=== PATIENT | female | born 1975 | race Caucasian/White ===

== ENCOUNTER → 2017-03-16 | Outpatient (CLI) | payer BC, OTHER ==
[2017-03-16 12:43] LABS: BASOPHILS % (AUTO) 0.3 %; HGB - HEMOGLOBIN 13.1 g/dL (12.0-16.0); LYMPHOCYTES # (AUTO) 2.6 10^3/uL (1.5-3.5); LYMPHOCYTES % (AUTO) 29.9 %; MEAN CORPUSCULAR HEMOGLOBIN 29.4 pg (27.0-31.0); MEAN CORPUSCULAR HGB CONC 33.7 g/dL (32.0-36.0); MEAN CORPUSCULAR VOLUME 87.2 fL (81.0-99.0); MEAN PLATELET VOLUME 9.2 fL (7.9-10.8); MONOCYTES # (AUTO) 0.5 10^3/uL (0.0-1.0); MONOCYTES % (AUTO) 5.7 %; NEUTROPHILS # (AUTO) 5.5 10^3/uL (1.5-6.6); NEUTROPHILS % (AUTO) 64.1 %; PLT - PLATELET COUNT 381 10^3/uL (130-450); RED BLOOD COUNT 4.48 10^6/uL (4.20-5.40); RED CELL DISTRIBUTION WIDTH 12.9 % (12.0-15.0); WHITE BLOOD COUNT 8.6 x10^3/uL (4.8-10.8)
[2017-03-16 13:20] LABS: ALBUMIN 3.2 g/dL (3.2-5.5); ALBUMIN/GLOBULIN RATIO 0.8 (1.0-2.2); ALKALINE PHOSPHATASE 56 IU/L (42-121); ALT ALANINE AMINOTRANSFERASE 11 IU/L (10-60); AST ASPARTATE AMINOTRANSFERASE 15 IU/L (10-42); BILIRUBIN,TOTAL 0.5 mg/dL (0.2-1.0); BUN - BLOOD UREA NITROGEN 14 mg/dL (6-20); CALCIUM 8.5 mg/dL (8.5-10.3); CARBON DIOXIDE - CO2 25 mmol/L (21-32); CHLORIDE 103 mmol/L (101-111); CHOL/HDL RATIO 3.8 (<4.4); CHOLESTEROL 200 mg/dL; CREATININE 0.7 mg/dL (0.4-1.0); GFR - MDRD 93 (>89); GLUCOSE 102 mg/dL (70-100); HDL CHOLESTEROL 52 mg/dL; LDL CHOLESTEROL,CALCULATED 117 mg/dL; LDL/HDL RATIO 2.3 (<4.4); SODIUM 136 mmol/L (135-145); TOTAL PROTEIN 7.3 g/dL (6.7-8.2); VLDL CHOLESTEROL 31 mg/dL
== END ==
LOC: LAB.WCP 08:00
PROVIDERS: ATTEND Family Medicine
DX: E87.6 Hypokalemia (principal); I10 Essential (primary) hypertension; E03.9 Hypothyroidism, unspecified
CPT/HCPCS: 36415; 80053; 80061; 83721; 84443; 85025

== ENCOUNTER 2017-09-05 08:24 | Outpatient (CLI) | payer BC ==
[2017-09-05 09:53] LABS: ALBUMIN 3.9 g/dL (3.2-5.5); BILIRUBIN,TOTAL 0.5 mg/dL (0.2-1.0); CALCIUM 9.2 mg/dL (8.5-10.3); CREATININE 0.8 mg/dL (0.4-1.0); TOTAL PROTEIN 7.7 g/dL (6.7-8.2)
--- NOTE | 2017-09-05 13:26 | XRAY Report ---
Procedure Date: 09/05/2017 Accession Number: [id number] / [id number] Procedure: XR - Chest 2 View X-Ray CPT Code: 78653 FULL RESULT: EXAM: Chest 2 View X-Ray DATE: 09/05/2017 10:08 AM CLINICAL HISTORY: POSITIVE PPD COMPARISON: None. TECHNIQUE: 2 views. FINDINGS: Lungs/Pleura: No focal opacities evident. No pneumothorax or pleural effusion. Normal volumes. Mediastinum: Heart and mediastinal contours are unremarkable. Other: None. IMPRESSION: Normal 2-view chest radiography. RADIA
== END 2017-09-05 08:25 | disposition home or self-care (01) ==
LOC: LAB 08:24 → DI 08:25
PROVIDERS: ATTEND Family Medicine
DX: R76.11 Nonspecific reaction to tuberculin skin test without active tuberculosis (principal)
CPT/HCPCS: 36415; 71046; 80053; 81599; 86735; 86762; 86765; 86787

== ENCOUNTER 2018-05-22 09:06 | Emergency (ER) | payer BC ==
--- NOTE | 2018-05-22 09:34 | ED Physician Documentation ---
PD HPI FEMALE - Stated complaint Stated Complaint: vaginal bleed - Chief complaint Chief Complaint: General - History obtained from History obtained from: Patient - History of Present Illness Timing - onset: Today Timing - duration: Hours (6) Timing - details: Abrupt onset Pain level max: 0 Pain level max: 0 Associated symptoms: Vaginal bleeding (states heavy vaginal bleeding today) Contributing factors: control (OCP) Similar symptoms before: Has not had sx before Recently seen: Not recently seen Review of Systems Ten Systems: 10 systems reviewed and negative Constitutional: denies: Fever, Chills Respiratory: denies: Cough GI: denies: Vomiting, Diarrhea Skin: denies: Rash Musculoskeletal: denies: Neck pain, Back pain Neurologic: denies: Headache PD PAST MEDICAL HISTORY - Past Medical History Past Medical History: Yes Cardiovascular: Hypertension Endocrine/Autoimmune: HyPOthyroidism - Past Surgical History Past Surgical History: Yes - Present Medications Home Medications: Ambulatory Orders Medication Instructions Recorded Confirmed Tranexamic Acid 1,300 mg PO TID #30 tablet 05/22/18 - Allergies Allergies/Adverse Reactions: Allergies Allergy/AdvReac Type Severity Reaction Status Date / Time No Known Drug Allergies Allergy Verified 05/22/18 11:38 - Social History Does the pt smoke?: No Smoking Status: Never smoker Does the pt drink ETOH?: No Does the pt have substance abuse?: No PD ED PE NORMAL - Vitals Vital signs reviewed: Yes - General General: Alert and oriented X 3, No acute distress - HEENT HEENT: Moist mucous membranes - Neck Neck: Supple, no meningeal sign - Cardiac Cardiac: RRR - Respiratory Respiratory: No respiratory distress, Clear bilaterally - Abdomen Abdomen: Soft, Non tender, Non distended - Female Female : Rn Ambulatory present, Other (Small amount of bleeding from the cervical os. Clots were removed. No lacerations. No visible polyp. Normal bimanual exam) - Derm Derm: Warm and dry - Extremities Extremities: No edema - Neuro Neuro: Alert and oriented X 3 - Psych Psych: Normal mood, Normal affect Results - Vitals Vitals: Vital Signs - 24 hr 05/22/18 05/22/18 05/22/18 09:17 09:19 11:20 Temperature 37.1 C 37.1 C Heart Rate 95 95 88 Respiratory 14 14 16 Rate Blood Pressure 169/99 H 169/99 H 167/101 H O2 Saturation 96 96 05/22/18 12:07 Temperature Heart Rate 90 Respiratory 14 Rate Blood Pressure 148/100 H O2 Saturation 98 Oxygen O2 Source Room air - Labs Labs: Laboratory Tests 05/22/18 05/22/18 05/22/18 09:30 09:30 09:30 WBC 8.3 RBC 4.52 Hgb 13.4 Hct 40.2 MCV 88.9 MCH 29.7 MCHC 33.4 RDW 12.8 Plt Count 407 MPV 8.1 Neut # (Auto) 5.3 Lymph # (Auto) 2.6 [facility] # (Auto) 0.5 Eos # (Auto) 0.0 Baso # (Auto) 0.0 Absolute Nucleated RBC 0.01 Nucleated RBC % 0.1 PT 11.2 INR 1.0 APTT 29.4 Sodium 137 Potassium 3.5 Chloride 102 Carbon Dioxide 25 Anion Gap 10.0 BUN 14 Creatinine 0.8 Estimated GFR (MDRD) 79 L Glucose 135 H Calcium 8.5 Total Bilirubin 0.8 AST 24 ALT < 10 L Alkaline Phosphatase 52 Total Protein 7.3 Albumin 3.4 Globulin 3.9 Albumin/Globulin Ratio 0.9 L Lipase 27 Urine Color Urine Clarity Urine pH Ur Specific [place] Urine Protein Urine Glucose (UA) Urine Ketones Urine Occult Blood Urine Nitrite Urine Bilirubin Urine Urobilinogen Ur Leukocyte Esterase Urine RBC Urine WBC Ur Squamous Epith Cells Urine Bacteria Ur Microscopic Review Urine Culture Comments Urine HCG, Qual 05/22/18 09:46 WBC RBC Hgb Hct MCV MCH MCHC RDW Plt Count MPV Neut # (Auto) Lymph # (Auto) [facility] # (Auto) Eos # (Auto) Baso # (Auto) Absolute Nucleated RBC Nucleated RBC % PT INR APTT Sodium Potassium Chloride Carbon Dioxide Anion Gap BUN Creatinine Estimated GFR (MDRD) Glucose Calcium Total Bilirubin AST ALT Alkaline Phosphatase Total Protein Albumin Globulin Albumin/Globulin Ratio Lipase Urine Color RED/BLOODY Urine Clarity BLOODY Urine pH 6.0 Ur Specific [place] Urine Protein Urine Glucose (UA) NEGATIVE Urine Ketones Urine Occult Blood LARGE H Urine Nitrite Urine Bilirubin COLOR INTERFERENCE Urine Urobilinogen Ur Leukocyte Esterase NEGATIVE Urine RBC TNTC H Urine WBC 6-10 H Ur Squamous Epith Cells FEW Squamous Urine Bacteria Few Ur Microscopic Review INDICATED Urine Culture Comments INDICATED Urine HCG, Qual NEGATIVE PD MEDICAL DECISION MAKING - ED course Complexity details: reviewed results, re-evaluated patient, considered differential, d/w patient, d/w bank consultant ED course: 43-year-old female with dysfunctional uterine bleeding. Discussed the case with gynecology on-call Dr. Mcclure who recommends follow-up as an outpatient. Patient is concerned about the amount of bleeding she is having and therefore will trial her on TXA. Given a gram IV here and will place on 1300 mg 3 times a day at home for 5 days. Patient counseled regarding risk of DVT and clotting. Has no history of blood clots. Patient counseled regarding signs and symptoms for which I believe and urgent re-evaluation would be necessary. Patient with good understanding of and agreement to plan and is comfortable going home at this time This document was made in part using voice recognition software. While efforts are made to proofread this document, sound alike and grammatical errors may occur. Departure - Departure Disposition: 01 Home, Self Care Clinical Impression: Dysfunctional uterine bleeding Condition: Good Instructions: ED Bleed Irregular Vaginal Follow-Up: Lindsey Hines DO [Primary Care Provider] - Within 1 week Jorge Mcclure MD [Provider Admit Priv/Credential] - Prescriptions: Tranexamic Acid 1,300 mg PO TID #30 tablet Comments: Return if you worsen. Follow-up with your doctor for further care. This should improve over the next day or so. Your laboratory testing is normal today. Discharge Date/Time: 05/22/18 12:08
[2018-05-22 09:41] LABS: BASOPHILS % (AUTO) 0.2 %; HGB - HEMOGLOBIN 13.4 g/dL (12.0-16.0); LYMPHOCYTES # (AUTO) 2.6 10^3/uL (1.5-3.5); LYMPHOCYTES % (AUTO) 30.9 %; MEAN CORPUSCULAR HEMOGLOBIN 29.7 pg (27.0-31.0); MEAN CORPUSCULAR HGB CONC 33.4 g/dL (32.0-36.0); MEAN CORPUSCULAR VOLUME 88.9 fL (81.0-99.0); MEAN PLATELET VOLUME 8.1 fL (7.9-10.8); MONOCYTES # (AUTO) 0.5 10^3/uL (0.0-1.0); MONOCYTES % (AUTO) 5.7 %; NEUTROPHILS # (AUTO) 5.3 10^3/uL (1.5-6.6); NEUTROPHILS % (AUTO) 63.2 %; PLT - PLATELET COUNT 407 10^3/uL (130-450); RED BLOOD COUNT 4.52 10^6/uL (4.20-5.40); RED CELL DISTRIBUTION WIDTH 12.8 % (12.0-15.0); WHITE BLOOD COUNT 8.3 x10^3/uL (4.8-10.8)
[2018-05-22 09:46] LABS: PT - PROTHROMBIN TIME 11.2 secs (9.9-12.6)
[2018-05-22 09:53] LABS: PARTIAL THROMBOPLASTIN TIME 29.4 secs (24.9-33.3)
[2018-05-22 09:56] LABS: ALBUMIN 3.4 g/dL (3.2-5.5); ALBUMIN/GLOBULIN RATIO 0.9 (1.0-2.2); ALKALINE PHOSPHATASE 52 IU/L (42-121); ALT ALANINE AMINOTRANSFERASE < 10 IU/L (10-60); AST ASPARTATE AMINOTRANSFERASE 24 IU/L (10-42); BILIRUBIN,TOTAL 0.8 mg/dL (0.2-1.0); BUN - BLOOD UREA NITROGEN 14 mg/dL (6-20); CALCIUM 8.5 mg/dL (8.5-10.3); CARBON DIOXIDE - CO2 25 mmol/L (21-32); CHLORIDE 102 mmol/L (101-111); CREATININE 0.8 mg/dL (0.4-1.0); GFR - MDRD 79 (>89); GLUCOSE 135 mg/dL (70-100); LIPASE 27 U/L (22-51); SODIUM 137 mmol/L (135-145); TOTAL PROTEIN 7.3 g/dL (6.7-8.2)
[2018-05-22 09:58] LABS: GLUCOSE, URINE (UA) NEGATIVE (NEGATIVE); LEUKOCYTE ESTERASE, URINE NEGATIVE (NEGATIVE); OCCULT BLOOD,URINE LARGE (NEGATIVE)
[2018-05-22 10:01] LABS: BILIRUBIN,URINE COLOR INTERFERENCE (NEGATIVE); CLARITY,URINE BLOODY (CLEAR); HCG UR QUAL NEGATIVE
[2018-05-22 10:03] LABS: BACTERIA,URINE Few /HPF (None Seen); RBC,URINE TNTC /HPF (0-5); SQUAMOUS EPITHELIAL CELL,UR FEW Squamous (<= Few)
[2018-05-22] MEDS ORDERED: TRANEXAMIC ACID 1,000 MG in SODIUM CHLORIDE 0.9% 100ML 100 ML IV STA (11:22)
[2018-05-22 12:08] VITALS: BP 148/100
== END 2018-05-22 12:08 | disposition home or self-care (01) ==
LOC: ED 09:06
DX: N93.8 Other specified abnormal uterine and vaginal bleeding (principal); I10 Essential (primary) hypertension; E03.9 Hypothyroidism, unspecified
CPT/HCPCS: 36415; 80053; 81001; 81003; 81025; 83690; 85025; 85610; 85730; 86850; 86870; 86900; 86901; 86920; 86922; 87086; 96365; 99283

== ENCOUNTER 2018-09-24 15:49 | Outpatient (CLI) | payer BC ==
--- NOTE | 2018-09-24 16:23 | Mammography Report ---
Reason: SCREENING MAMMO Procedure Date: 09/24/2018 Accession Number: [id number] / [id number] Procedure: MGN - Screening Mammo Dig Bilat CPT Code: FULL RESULT: EXAM: Screening Mammo Dig Bilat DATE: 09/24/2018 4:08 PM CLINICAL HISTORY: Screening encounter. Baseline exam. TECHNIQUE: (B) - Bilateral CC, laterally exaggerated CC, MLO views were obtained. COMPARISON: None PARENCHYMAL PATTERN: (D) - The breast(s) demonstrate(s) heterogeneously dense fibroglandular parenchyma. FINDINGS: There are no suspicious masses, calcifications, or areas of distortion. IMPRESSION: Negative examination. BI-RADS category 1. RECOMMENDATION: (ANNUAL) - Recommend routine annual screening mammography. BI-RADS CATEGORY: (1) - Negative. STANDARD QUALIFYING STATEMENTS: 1. This examination was not reviewed with the aid of Computer-Aided Detection (CAD). 2. A negative or benign imaging report should not preclude biopsy if clinically suspicious findings are present. 3. Dense breasts may obscure an underlying neoplasm. 4. This examination was reviewed without the aid of 3D breast imaging (tomosynthesis).
== END 2018-09-24 15:50 | disposition home or self-care (01) ==
LOC: DI.N 15:49
DX: Z12.31 Encounter for screening mammogram for malignant neoplasm of breast (principal)
CPT/HCPCS: 77067

== ENCOUNTER 2018-10-24 14:47 | Outpatient (CLI) | payer BC | END 2018-10-24 23:59 | disposition home or self-care (01) | LOC: LAB.WCP 14:47 | PROVIDERS: ATTEND Family Medicine | DX: E03.9 Hypothyroidism, unspecified (principal) | CPT/HCPCS: 36415; 84443 ==

== ENCOUNTER 2019-01-21 07:10 | Outpatient (CLI) | payer BC ==
[2019-01-21 13:52] LABS: BASOPHILS % (AUTO) 0.2 %; HGB - HEMOGLOBIN 13.2 g/dL (12.0-16.0); LYMPHOCYTES # (AUTO) 2.3 10^3/uL (1.5-3.5); LYMPHOCYTES % (AUTO) 37.9 %; MEAN CORPUSCULAR HGB CONC 30.6 g/dL (32.0-36.0); MEAN CORPUSCULAR VOLUME 88.1 fL (81.0-99.0); MEAN PLATELET VOLUME 10.6 fL (7.9-10.8); MONOCYTES # (AUTO) 0.5 10^3/uL (0.0-1.0); MONOCYTES % (AUTO) 7.9 %; NEUTROPHILS # (AUTO) 3.3 10^3/uL (1.5-6.6); NEUTROPHILS % (AUTO) 53.7 %; PLT - PLATELET COUNT 402 10^3/uL (130-450); RED BLOOD COUNT 4.89 10^6/uL (4.20-5.40); RED CELL DISTRIBUTION WIDTH 13.6 % (12.0-15.0); WHITE BLOOD COUNT 6.2 x10^3/uL (4.8-10.8)
[2019-01-21 13:59] LABS: ALBUMIN 3.6 g/dL (3.2-5.5); ALBUMIN/GLOBULIN RATIO 1.1 (1.0-2.2); ALKALINE PHOSPHATASE 75 IU/L (42-121); ALT ALANINE AMINOTRANSFERASE 12 IU/L (10-60); AST ASPARTATE AMINOTRANSFERASE 19 IU/L (10-42); BILIRUBIN,TOTAL 0.6 mg/dL (0.2-1.0); BUN - BLOOD UREA NITROGEN 16 mg/dL (6-20); CALCIUM 8.7 mg/dL (8.5-10.3); CARBON DIOXIDE - CO2 31 mmol/L (21-32); CHLORIDE 101 mmol/L (101-111); CHOL/HDL RATIO 3.7 (<4.4); CHOLESTEROL 190 mg/dL; CREATININE 0.9 mg/dL (0.4-1.0); GFR - MDRD 69 (>89); GLUCOSE 82 mg/dL (70-100); HDL CHOLESTEROL 51 mg/dL; LDL CHOLESTEROL,CALCULATED 120 mg/dL; LDL/HDL RATIO 2.4 (<4.4); SODIUM 140 mmol/L (135-145); VLDL CHOLESTEROL 19 mg/dL
[2019-01-21 14:35] LABS: HEMOGLOBIN A1C 0.53 g/dL; HEMOGLOBIN A1C % 5.6 % (4.6-6.2)
[2019-01-21 19:49] LABS: FREE T4 (FREE THYROXINE) 1.02 ng/dL (0.58-1.64)
== END 2019-01-21 23:59 | disposition home or self-care (01) ==
LOC: LAB.WCP 07:10
PROVIDERS: ATTEND Family Medicine
DX: Z00.00 Encounter for general adult medical examination without abnormal findings (principal); I10 Essential (primary) hypertension; E66.9 Obesity, unspecified; E03.9 Hypothyroidism, unspecified
CPT/HCPCS: 36415; 80053; 80061; 83036; 83721; 84439; 84443; 85025

== ENCOUNTER 2020-02-19 08:18 | Outpatient (CLI) | payer BC ==
--- OUTSIDE RECORDS SUMMARY | 2020-02-25 01:48 | EXTERNAL MEDICAL SUMMARY RPT | Continuity of Care Document ---
:1975 Demographics Phone Unavailable Preferred Language Belarusian Marital Status Unknown Mandaen Affiliation Unknown Race Unknown Ethnic Group Unknown Author Organization [place] Address [address] [place] [address] Phone Care Team Providers Name Role Phone Scheidt Unavailable Unavailable DO Unavailable Unavailable Problems date description facility 2020-02-19 00:00 PAIN IN LEFT LOWER LEG [facility] 2020-02-19 00:00:00 [facility] 2020-02-19 00:00:00 [facility] 2020-02-19 00:00:00 [facility] 2020-02-19 00:00:00 Health-related behavior [facility] 2020-02-19 00:00:00 Tobacco use and exposure [facility] h Primary Care [facility] 2020-02-19 00:00:00 [facility] 2020-02-19 00:00:00 [facility] 2020-02-19 00:00:00 Details of drug misuse [facility] Primary Care behavior [facility] 2020-02-19 00:00:00 [facility] 2020-02-19 00:00:00 Tobacco smoking status NHIS [facility] 2020-02-19 00:00:00 Total score? [facility] 2020-02-19 00:00:00 [facility] 2020-02-19 08:18 PAIN IN LEFT LOWER LEG [facility] edical [place] Allergies date description facility [facility]RAM[facility] No Known Drug Allergies [facility] NO KNOWN ENVIRONMENTAL ALLERGIES [facility] SULFA ANTIBIOTICS [facility] LATEX [facility] Medications date description facility null [facility] [place] [facility] null [facility] [facility] LORAZEPAM [facility] LORAZEPAM [facility] 2020-01-19 00:00:00 null [facility] 2020-01-19 00:00:00 null [facility] 2020-01-19 00:00:00 LEVOTHYROXINE SODIUM [facility] 2020-01-19 00:00:00 LEVOTHYROXINE SODIUM [facility] Procedures date description facility 2020-02-19 00:00:00 D-DIMER [facility] date description facility 2020-02-19 00:00:00 [facility] Results Social History date description facility 2020-02-19 00:00:00 Former smoker [facility] Social History date description facility 2020-02-19 00:00:00 Former smoker [facility] date description facility [id number]
== END 2020-02-19 23:59 | disposition home or self-care (01) ==
LOC: LAB.N 08:18
PROVIDERS: ATTEND Family Medicine
DX: M79.662 Pain in left lower leg (principal)
CPT/HCPCS: 36415; 85379

== ENCOUNTER 2020-02-19 13:47 | Emergency (ER) | payer BC ==
--- NOTE | 2020-02-19 14:43 | ED Physician Documentation ---
History of Present Illness - Stated complaint Stated Complaint: BLOOD CLOT LT LEG - Chief complaint Chief Complaint: Ext Problem - History obtained from History obtained from: Patient - Additonal information Additional information: 44-year-old female is referred to the emergency department from a local walk-in clinic for concern of possible deep vein thrombosis. She reports that for 4 days she has had pain in her left posterior calf mostly when walking. She reports that it feels like she may have had cramps in the leg overnight. She has no recent surgeries, immobilizations. No previous history of blood clots or cancer. She does not take oral contraceptive pills. At the local walk-in clinic she had a D-dimer completed and it was mildly elevated at 273. Therefore she was referred to the ER for an ultrasound. Patient denies any chest pain fevers or shortness of breath. PMH: Hypertension, asthma, hypothyroid Social no tobacco Meds hydrochlorothiazide, albuterol, levothyroxine, telmisartan Review of Systems Constitutional: reports: Reviewed and negative Eyes: reports: Reviewed and negative Ears: reports: Reviewed and negative Nose: reports: Reviewed and negative Cardiac: reports: Calf pain, Reviewed and negative. denies: Pedal edema Respiratory: reports: Reviewed and negative GI: reports: Reviewed and negative : reports: Reviewed and negative Skin: reports: Reviewed and negative Musculoskeletal: reports: Extremity pain (left posterior calf). denies: Joint swelling Neurologic: reports: Reviewed and negative Psychiatric: reports: Reviewed and negative PD PAST MEDICAL HISTORY - Past Medical History Past Medical History: Yes Cardiovascular: Hypertension Endocrine/Autoimmune: HyPOthyroidism - Past Surgical History Past Surgical History: Yes - Present Medications Home Medications: Ambulatory Orders Medication Instructions Recorded Confirmed Tranexamic Acid 1,300 mg PO TID #30 tablet 05/22/18 - Allergies Allergies/Adverse Reactions: Allergies Allergy/AdvReac Type Severity Reaction Status Date / Time No Known Drug Allergies Allergy Verified 02/19/20 13:50 - Social History Does the pt smoke?: No Smoking Status: Never smoker Does the pt drink ETOH?: No Does the pt have substance abuse?: No - Immunizations Immunizations are current?: No - POLST Patient has POLST: No PD ED PE EXPANDED - General General: Alert, No acute distress, Well developed/nourished - Cardiac Cardiac: Regular Rate, Regular Rhythm, Radial strong equal, Pedal strong equal, Cap refill < 2 sec. No: Murmur Present - Respiratory Respiratory: Clear to ausultation paulo. No: Distress, Labored - Abdomen Abdomen: Normal Bowel sounds. No: Tender to palpation - Extremities Extremities: Left leg (No unilateral leg swelling or erythema. Negative Homans bilaterally. Mild tenderness elicited in the deep posterior calf with palpation only.), Pedal Pulses Present. No: Pedal edema bilateral, Right calf TTP/cord, Left calf TTP/cord Results - Vitals Vitals: Vital Signs - 24 hr 02/19/20 02/19/20 13:51 15:50 Temperature 36.5 C 36.7 C Heart Rate 109 H 93 Respiratory 16 14 Rate Blood Pressure 152/90 H 138/84 H O2 Saturation 100 98 Oxygen O2 Source Room air - Labs Labs: Laboratory Tests 02/19/20 02/19/20 15:42 15:46 WBC 8.1 RBC 5.02 Hgb 14.6 Hct 44.4 MCV 88.4 MCH 29.1 MCHC 32.9 RDW 13.2 Plt Count 378 MPV 9.8 Neut # (Auto) 4.5 Lymph # (Auto) 2.8 [facility] # (Auto) 0.7 Eos # (Auto) 0.0 Baso # (Auto) 0.0 Absolute Nucleated RBC 0.00 Nucleated RBC % 0.0 Whole Blood INR 1.0 - Rads (name of study) US DVT Radiology: See rad report, Other (Per driver service technician no DVT) PD MEDICAL DECISION MAKING - ED course Complexity details: reviewed results, re-evaluated patient, considered differential, d/w patient ED course: 44-year-old female was referred to the emergency department for DVT rule out as she had a mildly elevated D-dimer at a local walk-in clinic. On exam she has very mild tenderness with deep palpation of the left posterior calf only. There is no swelling or erythema. However we will proceed with an ultrasound DVT. Her pretest porbability is low via wells criteria. 1600: Ultrasound does not show any acute deep vein thrombosis. Patient will be discharged home. Continue follow-up with primary care provider Departure - Departure Disposition: Home, Self Care Clinical Impression: Pain of left calf Condition: Stable Record reviewed to determine appropriate education?: Yes Comments: Ashlee deng are seen in the emergency department today for evaluation of left calf pain. You did have a lab called a D-dimer completed as an outpatient which was just mildly elevated therefore you referred to the emergency department to have an ultrasound completed to rule out a clot. The ultrasound today does not show any blood clots. I do recommend that you take [id number] ibuprofen or Tylenol for any discomfort. If at any point you develop leg swelling, have leg redness, chest pain or shortness of breath please return to the emergency department for reevaluation
[2020-02-19 15:51] VITALS: BP 138/84
--- NOTE | 2020-02-19 15:52 | Ultrasound Report ---
PROCEDURE: Duplex Ext Veins Left INDICATIONS: calf pain; elevated dimer TECHNIQUE: Real-time imaging, as well as color and pulse Doppler interrogation, were performed of the lower extr emity deep veins from the inguinal ligament to the popliteal fossa. COMPARISON: None. FINDINGS: The deep veins are normally compressible, and free of intraluminal thrombus. Color and pu lse Doppler demonstrate normal phasic intraluminal flow. There is normal augmentation response to di stal compression maneuver. IMPRESSION: No sonographic evidence of DVT. Reviewed by: Josse Granados MD on 02/19/2020 3:51 PM PST Approved by: Josse Granados MD on 02/19/2020 3:51 PM PST Station ID: [id number]
[2020-02-19 15:54] LABS: EOSINOPHILS % (AUTO) 0.1 %; HGB - HEMOGLOBIN 14.6 g/dL (12.0-16.0); LYMPHOCYTES # (AUTO) 2.8 10^3/uL (1.5-3.5); LYMPHOCYTES % (AUTO) 35.1 %; MEAN CORPUSCULAR HEMOGLOBIN 29.1 pg (27.0-31.0); MEAN CORPUSCULAR HGB CONC 32.9 g/dL (32.0-36.0); MEAN CORPUSCULAR VOLUME 88.4 fL (81.0-99.0); MEAN PLATELET VOLUME 9.8 fL (7.9-10.8); MONOCYTES # (AUTO) 0.7 10^3/uL (0.0-1.0); MONOCYTES % (AUTO) 9.2 %; NEUTROPHILS # (AUTO) 4.5 10^3/uL (1.5-6.6); NEUTROPHILS % (AUTO) 55.4 %; PLT - PLATELET COUNT 378 10^3/uL (130-450); RED BLOOD COUNT 5.02 10^6/uL (4.20-5.40); RED CELL DISTRIBUTION WIDTH 13.2 % (12.0-15.0); WHITE BLOOD COUNT 8.1 x10^3/uL (4.8-10.8)
[2020-02-19 16:09] LABS: ALBUMIN 4.1 g/dL (3.2-5.5); ALBUMIN/GLOBULIN RATIO 1.1 (1.0-2.2); BILIRUBIN,TOTAL 0.4 mg/dL (0.2-1.0); CREATININE 0.8 mg/dL (0.4-1.0); TOTAL PROTEIN 7.7 g/dL (6.7-8.2)
--- OUTSIDE RECORDS SUMMARY | 2020-02-25 01:15 | EXTERNAL MEDICAL SUMMARY RPT | Continuity of Care Document ---
:1975 Demographics Phone Unavailable Preferred Language Maltese Marital Status Unknown Scientology Affiliation Unknown Race Unknown Ethnic Group Unknown Author Organization [place] Address [address] [place] [address] Phone Care Team Providers Name Role Phone Scheidt Unavailable Unavailable DO Unavailable Unavailable Problems date description facility 2020-02-19 00:00 PAIN IN LEFT LOWER LEG [facility] 2020-02-19 00:00[facility] 2020-02-19 [facility]:00[facility] 2020-02-19 00:00:00 [facility] 2020-02-19 00:00:00 [facility] 2020-02-19 00:00:00 Tobacco use and exposure [facility] h Primary Care [facility] 2020-02-19 00:00:00 [facility] 2020-02-19 00:00:00 [facility] 2020-02-19 00:00:00 Details of drug misuse [facility] Primary Care behavior [facility] 2020-02-19 00:00:00 [facility] 2020-02-19 00:00:00 [facility] 2020-02-19 00:00:00 Total score? [facility] 2020-02-19 00:00:00 [facility] 2020-02-19 08:18 PAIN IN LEFT LOWER LEG [facility] edical [place] Allergies date description facility [facility] No Known Drug Allergies [facility] NO KNOWN ENVIRONMENTAL ALLERGIES [facility] SULFA ANTIBIOTICS [facility] LATEX [facility] Medications date description facility null [facility] null [facility] LORAZEPAM [facility] LORAZEPAM [facility] 2020-01-19 00:00:00 null [facility] 2020-01-19 00:00:00 null [facility] 2020-01-19 00:00:00 LEVOTHYROXINE SODIUM [facility] 2020-01-19 00:00:00 LEVOTHYROXINE SODIUM [facility] Procedures date description facility 2020-02-19 00:00:00 D-DIMER [facility] date description facility 2020-02-19 00:00:00 [facility] Results Social History date description facility 2020-02-19 00:00:00 Former smoker [facility] Social History date description facility 2020-02-19 00:00:00 Former smoker [facility] date description facility [id number]
== END 2020-02-19 16:06 | disposition home or self-care (01) ==
LOC: ED 13:47
DX: M79.662 Pain in left lower leg (principal); I10 Essential (primary) hypertension; E03.9 Hypothyroidism, unspecified
CPT/HCPCS: 36415; 80053; 83690; 85025; 85379; 85610; 99282; 99284

== ENCOUNTER 2020-08-28 07:32 | Observation (INO) | payer BC ==
[2020-08-28] MEDS ORDERED: IPRATROPIUM/ALBUTEROL 3 ML NEB INH STA (07:48)
[2020-08-28] MEDS ORDERED: ALBUTEROL NEB 2.5 MG/3 ML INH STA ×3 (08:15→10:21)
--- NOTE | 2020-08-28 08:18 | ED Physician Documentation ---
History of Present Illness - Stated complaint Stated Complaint: SOA - Chief complaint Chief Complaint: Resp - History obtained from History obtained from: Patient - Additonal information Additional information: 45-year-old woman with history of asthma, high blood pressure, hypothyroidism, presents with nonproductive cough and fever 100.3 over the past 2 days. She has a son with a cold. Patient used her albuterol inhaler this morning without relief and was experiencing shortness of breath so came to the emergency room. Denies chest pain, leg swelling, nausea, abdominal pain, back pain. Denies rash. +covid vaccine. Review of Systems Ten Systems: 10 systems reviewed and negative Constitutional: reports: Fever, Fatigue Respiratory: reports: Dyspnea, Cough PD PAST MEDICAL HISTORY - Past Medical History Past Medical History: Yes Cardiovascular: Hypertension Respiratory: Asthma Neuro: None Endocrine/Autoimmune: HyPOthyroidism GI: None SOLOIST DANCER: None : None HEENT: None Psych: Anxiety Musculoskeletal: None - Past Surgical History Past Surgical History: Yes /SOLOIST DANCER: section, Tubal ligation - Present Medications Home Medications: Ambulatory Orders Medication Instructions Recorded Confirmed Albuterol Sulf [Ventolin Hfa 1 - 2 puffs INH Q4HR PRN 08/28/20 08/28/20 Inhaler] Levothyroxine Sodium 200 mcg PO DAILY 08/28/20 08/28/20 [Levothyroxine] PARoxetine HCl [Paxil] 40 mg PO DAILY 08/28/20 08/28/20 Telmisartan/Hydrochlorothiazid 1 tab ORAL DAILY 08/28/20 08/28/20 [Telmisartan-Hctz 40-12.5 mg Tb] - Allergies Allergies/Adverse Reactions: Allergies Allergy/AdvReac Type Severity Reaction Status Date / Time No Known Drug Allergies Allergy Verified 08/28/20 07:37 - Social History Does the pt smoke?: No Smoking Status: Never smoker Does the pt drink ETOH?: No Does the pt have substance abuse?: No - Immunizations Immunizations are current?: Yes - POLST Patient has POLST: No PD ED PE NORMAL - Vitals Vital signs reviewed: Yes - General General: Alert and oriented X 3, No acute distress, Well developed/nourished - HEENT HEENT: Atraumatic, PERRL, EOMI - Neck Neck: Supple, no meningeal sign - Cardiac Cardiac: RRR - Respiratory Respiratory: No respiratory distress, Other (No increased work of breathing. Bilateral decreased airflow and expiratory wheezing) - Abdomen Abdomen: Non tender, Non distended - Derm Derm: Normal color - Extremities Extremities: No edema - Neuro Neuro: Alert and oriented X 3 - Psych Psych: Normal mood, Normal affect Results - Vitals Vitals: Vital Signs - 24 hr 08/28/20 08/28/20 08/28/20 07:37 08:09 08:31 Temperature 37.4 C Heart Rate 120 H 103 H 104 H Respiratory 20 22 18 Rate Blood Pressure 130/74 120/78 O2 Saturation 90 L 91 L 08/28/20 08/28/20 08/28/20 09:13 10:00 10:36 Temperature Heart Rate 106 H 111 H 109 H Respiratory 18 22 18 Rate Blood Pressure 121/77 O2 Saturation 93 Oxygen O2 Source Room air - Labs Labs: Laboratory Tests 08/28/20 08/28/20 08/28/20 11:15 11:31 11:31 WBC 10.9 H RBC 4.57 Hgb 13.7 Hct 40.8 MCV 89.3 MCH 30.0 MCHC 33.6 RDW 13.4 Plt Count 334 MPV 10.2 Neut # (Auto) 9.7 H Lymph # (Auto) 0.7 L [place] # (Auto) 0.4 Eos # (Auto) 0.0 Baso # (Auto) 0.0 Absolute Nucleated RBC 0.00 Nucleated RBC % 0.0 Sodium 135 Potassium 3.7 Chloride 98 L Carbon Dioxide 26 Anion Gap 11.0 BUN 12 Creatinine 0.8 Estimated GFR (MDRD) 78 L Glucose 140 H Calcium 8.9 Total Bilirubin 0.4 AST 19 ALT 17 Alkaline Phosphatase 93 Total Protein 7.7 Albumin 3.9 Globulin 3.8 Albumin/Globulin Ratio 1.0 Lipase 20 L Nasal Adenovirus (PCR) NOT DETECTED Nasal B. parapertussis DNA (PCR) NOT DETECTED Nasal Coronavir 229E PCR NOT DETECTED Nasal Coronavir HKU1 PCR NOT DETECTED Nasal Coronavir NL63 PCR NOT DETECTED Nasal Coronavir OC43 PCR NOT DETECTED Nasal Enterovir/Rhinovir PCR NOT DETECTED Nasal Influenza B PCR NOT DETECTED Nasal Influenza A PCR NOT DETECTED Nasal Parainfluen 1 PCR NOT DETECTED Nasal Parainfluen 2 PCR NOT DETECTED Nasal Parainfluen 3 PCR NOT DETECTED Nasal Parainfluen 4 PCR NOT DETECTED Nasal RSV (PCR) DETECTED A Nasal B.pertussis DNA PCR NOT DETECTED Nasal C.pneumoniae (PCR) NOT DETECTED [place] Human Metapneumo PCR NOT DETECTED Nasal M.pneumoniae (PCR) NOT DETECTED Nasal SARS-CoV-2 (PCR) NOT DETECTED PD MEDICAL DECISION MAKING - ED course ED course: 45-year-old woman presented with acute asthma attack this morning, likely exacerbated by viral upper respiratory infection. differential considered. Education given. Patient feeling better after initial DuoNeb and chest x-ray clear of pneumonia, however still with o2 sat 93% RA, uncomfortable and SOA with ambulation. will place in obs. Departure - Departure Disposition: ED Place in Observation Clinical Impression: Asthma exacerbation
[2020-08-28] MEDS ORDERED: DEXAMETHASONE 10 MG/ML VIAL PO STA (08:50)
[2020-08-28] MEDS ORDERED: CHERRY SYRUP 10 ML UDC PO ONE (08:50)
--- NOTE | 2020-08-28 09:34 | XRAY Report ---
PROCEDURE: Chest 2 View X-Ray INDICATIONS: Short of breath TECHNIQUE: 2 view(s) of the chest. COMPARISON: 09/05/2017 FINDINGS: Surgical changes and devices: None. Lungs and pleura: No pleural effusions or pneumothorax. Mild central chronic interstitial changes an d increased bronchovascular markings without focal infiltrate. Mediastinum: Mediastinal contours are normal. Heart size is normal. Bones and chest wall: No suspicious bony abnormalities. Soft tissues appear unremarkable. IMPRESSION: No focal infiltrate, pneumothorax or pleural effusion. Mild increased central bronchovascular markings may reflect bronchitis or chronic interstitial change Reviewed by: Jaziel Kraus MD on 08/28/2020 8:33 AM CHAPITO Approved by: Jaziel Kraus MD on 08/28/2020 8:33 AM AKDARRYN Station ID: [id number]
[2020-08-28 11:43] LABS: BASOPHILS % (AUTO) 0.2 %; HCT - HEMATOCRIT 40.8 % (37.0-47.0); HGB - HEMOGLOBIN 13.7 g/dL (12.0-16.0); LYMPHOCYTES # (AUTO) 0.7 10^3/uL (1.5-3.5); LYMPHOCYTES % (AUTO) 6.7 %; MEAN CORPUSCULAR HGB CONC 33.6 g/dL (32.0-36.0); MEAN CORPUSCULAR VOLUME 89.3 fL (81.0-99.0); MEAN PLATELET VOLUME 10.2 fL (7.9-10.8); MONOCYTES # (AUTO) 0.4 10^3/uL (0.0-1.0); MONOCYTES % (AUTO) 3.7 %; NEUTROPHILS # (AUTO) 9.7 10^3/uL (1.5-6.6); PLT - PLATELET COUNT 334 10^3/uL (130-450); RED BLOOD COUNT 4.57 10^6/uL (4.20-5.40); RED CELL DISTRIBUTION WIDTH 13.4 % (12.0-15.0); WHITE BLOOD COUNT 10.9 x10^3/uL (4.8-10.8)
[2020-08-28 11:53] LABS: ALBUMIN 3.9 g/dL (3.2-5.5); BILIRUBIN,TOTAL 0.4 mg/dL (0.2-1.0); CALCIUM 8.9 mg/dL (8.5-10.3); CREATININE 0.8 mg/dL (0.4-1.0); POTASSIUM 3.7 mmol/L (3.5-5.0); TOTAL PROTEIN 7.7 g/dL (6.7-8.2)
[2020-08-28 12:17] LABS: B. PARAPERTUSSIS- RESP PCR PAN NOT DETECTED; B. PERTUSSIS- RESP PCR PANEL NOT DETECTED; C. PNEUMONIAE- RESP PCR PANEL NOT DETECTED; CORONAVIRUS 229E-RESP PCR NOT DETECTED; CORONAVIRUS HKU1-RESP PCR NOT DETECTED; CORONAVIRUS NL63-RESP PCR NOT DETECTED; CORONAVIRUS OC43-RESP PCR NOT DETECTED; HUMAN METAPNEUMOVIRUS NOT DETECTED; INFLUENZA A- RESP PCR PANEL NOT DETECTED; INFLUENZA B - RESP PCR PANEL NOT DETECTED; M. PNEUMONIAE- RESP PCR PANEL NOT DETECTED; PARAINFLUENZA VIRUS 1 NOT DETECTED; PARAINFLUENZA VIRUS 2 NOT DETECTED; PARAINFLUENZA VIRUS 3 NOT DETECTED; PARAINFLUENZA VIRUS 4 NOT DETECTED; RHINOVIRUS/ENTEROVIRUS NOT DETECTED; RSV- RESP PCR PANEL DETECTED; SARS-CoV-2 -RESP PCR PANEL NOT DETECTED
[2020-08-28] MEDS ORDERED: ACETAMINOPHEN 325 MG TABLET PO PRN (12:31)
[2020-08-28] MEDS ORDERED: ONDANSETRON 4 MG/2 ML VIAL IVP PRN (12:31)
[2020-08-28] MEDS ORDERED: SODIUM CHLORIDE FLUSH 0.9% 10 ML SYRINGE IVP PRN (12:31)
[2020-08-28] MEDS ORDERED: AZITHROMYCIN 250 MG TABLET PO STA (12:35)
--- NOTE | 2020-08-28 12:40 | HISTORY & PHYSICAL EXAMINATION ---
Chief Complaint - Chief Complaint Chief Complaint: SOA History of Present Illness - Admitted From Admitted From:: ED - History of Present Illness HPI Comment/Other: This is a 45-year-old WF with a history of asthma, hypertension and hypothyroidism. She caught a URI, she tinks from her 22 y/o son who works at a [employer], and has had low-grade fevers , aches and a non-productive cough for 2-3 days. Today she developed rapidly worsening short of breath and came to the ED. She was wheezing. Her oxygen saturation was 93% on room air. She was given several doses of nebulizers and steroids and felt better. With ambulation her oxygen saturation dropped to 90% on room air. The patient still feels air hunger. Her CXR was read as having probable bronchitis, and no infiltrate was seen. COVID test is neg, and she was vaccinated as well as everyone in her house. She is being placed in Observation status for additional management of her acute asthmatic exacerbation and her respiratory syncytial virus URI. History - Past Medical History Cardiovascular: reports: Hypertension Respiratory: reports: Asthma Neuro: reports: None Endocrine/Autoimmune: reports: HyPOthyroidism GI: reports: None STONE SAWYER: reports: None : reports: None HEENT: reports: None Psych: reports: Anxiety Musculoskeletal: reports: None MRSA Hx?: No - Past Surgical History /STONE SAWYER: reports: section, Tubal ligation Other past surgical history: Gastric sleeve surgery - Family & Social History Family History: Mother: (from Lung CA, was a smoker), Father: Cancer (of prostate), Sister: Alive and Well, Brother: Alive and Well Living arrangement: At home Living Situation: With family Social History Notes: She is a non-smoker who quit smoking 13 years ago, she seldom drinks alcohol and there is no marijuana or illicit drug use Hx. Lives at home with her and 15-year-old son and 22-year-old son. She works from home, has a desk job, for the [email or web address]. - Substance History Use: Uses substance without health or social issues: NONE - POLST Patient has POLST: No Meds/Allgy - Home Medications Home Medications: Ambulatory Orders Medication Instructions Recorded Confirmed Albuterol Sulf [Ventolin Hfa 1 - 2 puffs INH Q4HR PRN 08/28/20 08/28/20 Inhaler] Levothyroxine Sodium 200 mcg PO DAILY 08/28/20 08/28/20 [Levothyroxine] PARoxetine HCl [Paxil] 40 mg PO DAILY 08/28/20 08/28/20 Telmisartan/Hydrochlorothiazid 1 tab ORAL DAILY 08/28/20 08/28/20 [Telmisartan-Hctz 40-12.5 mg Tb] - Allergies Allergies/Adverse Reactions: Allergies Allergy/AdvReac Type Severity Reaction Status Date / Time No Known Drug Allergies Allergy Verified 08/28/20 07:37 Review of Systems - Constitutional Constitutional: reports: Fatigue, Fever, Malaise - Respiratory Respiratory: reports: Cough, Wheezing, SOB with exertion - All Other Systems All Other Systems: reports: Reviewed and negative Exam - Vital Signs Reviewed Vital Signs: Yes Vital Signs: Vital Signs x48h Temp Pulse Resp BP Pulse Ox 08/28/20 12:00 105 H 20 125/82 H 93 08/28/20 10:36 109 H 18 08/28/20 10:00 111 H 22 121/77 93 08/28/20 09:13 106 H 18 08/28/20 08:31 104 H 18 08/28/20 08:09 103 H 22 120/78 91 L 08/28/20 07:37 37.4 C 120 H 20 130/74 90 L - Physical Exam General Appearance: positive: Mild distress (from mid back pain, not SOB at rest. Obese WF.) Eyes Bilateral: positive: Normal inspection, EOMI ENT: positive: ENT inspection nml, No signs of dehydration Neck: positive: Nml inspection, No JVD Respiratory: positive: Wheezes (scattered in upper irwin, diffusely poor air movement.) Cardiovascular: positive: Regular rate & rhythm, No murmur, Other (Distant heart sounds due to large breasts) Abdomen: positive: Non-tender, Nml bowel sounds, No distention (Obese with a pannus) Skin: positive: No rash, Warm, Dry Neurologic/Psychiatric: positive: Oriented x3 (Non-focal) Conclusion/Plan - Problem List (1) Acute asthma exacerbation Conclusion/Plan: We will continue with oxygen to keep saturations greater than 92% at rest and with activity. We will start the patient on a Medrol Dosepak with burst steroids quickly tapering Will order DuoNeb treatments 4 times daily and every 4 hours as needed. We will order Pulmicort inhaler also. (2) RSV bronchitis Conclusion/Plan: Will order Mucinex for expectoration. Will order a course of Zithromax for bronchitis Will order Tylenol for fever or aches and pains (3) HTN (hypertension) Conclusion/Plan: We will continue this patient's home dose of a combined 2-component blood pressure pill (4) Hypothyroidism Conclusion/Plan: Will continue this patient's home dose of Synthroid (5) Back pain Conclusion/Plan: She complains of mid and low back pain from coughing the past 3 days and overall aches and pains in general. She reports that Tylenol and Motrin usually do not help. Will order oxycodone as needed (6) Weight gain following gastric bypass surgery Conclusion/Plan: There is a history of gastric sleeve bypass surgery. She was able to lose 70 pounds. She has gained 20 of it back. - Lab Results Fish Bones: 08/28/20 11:31 08/28/20 11:31
[2020-08-28] MEDS ORDERED: methylPREDNISolone 4 MG TABLET PO SCH (13:30)
[2020-08-28] MEDS: BUDESONIDE 0.5 MG/2 ML NEB INH SCH ×2 (13:37→19:45)
[2020-08-28] MEDS: IPRATROPIUM/ALBUTEROL 3 ML NEB INH SCH ×2 (15:10→19:45)
[2020-08-28] MEDS: SODIUM CHLORIDE FLUSH 0.9% 10 ML SYRINGE IVP SCH (18:02)
[2020-08-28] MEDS: IBUPROFEN 600 MG TABLET PO SCH (18:02)
[2020-08-28] MEDS: oxyCODONE 5 MG TABLET PO PRN ×2 (18:02→21:56)
[2020-08-28] MEDS: guaiFENesin 600 MG TABLET PO SCH (21:56)
[2020-08-29] MEDS: IBUPROFEN 600 MG TABLET PO SCH ×4 (00:07→17:29)
[2020-08-29] MEDS: SODIUM CHLORIDE FLUSH 0.9% 10 ML SYRINGE IVP SCH ×3 (00:08→17:29)
[2020-08-29] MEDS: IPRATROPIUM/ALBUTEROL 3 ML NEB INH PRN (05:03)
[2020-08-29] MEDS: LEVOTHYROXINE 100 MCG TABLET PO SCH (06:42)
[2020-08-29] MEDS: IPRATROPIUM/ALBUTEROL 3 ML NEB INH SCH ×4 (07:22→20:00)
[2020-08-29] MEDS: BUDESONIDE 0.5 MG/2 ML NEB INH SCH ×2 (07:22→20:00)
[2020-08-29] MEDS: LOSARTAN 50 MG TABLET PO SCH (08:15)
[2020-08-29] MEDS: methylPREDNISolone 4 MG TABLET PO SCH (08:15)
[2020-08-29] MEDS: guaiFENesin 600 MG TABLET PO SCH ×2 (08:15→20:30)
[2020-08-29] MEDS: PARoxetine 10 MG TABLET PO SCH (08:16)
[2020-08-29] MEDS: AZITHROMYCIN 250 MG TABLET PO SCH (08:16)
[2020-08-29] MEDS: hydroCHLOROthiazide 12.5 MG CAPSULE PO SCH (08:16)
--- NOTE | 2020-08-29 17:45 | PROVIDER PROGRESS NOTE ---
Assessment/Plan - Problem List (1) Acute asthma exacerbation Assessment/Plan: She has had only slight improvement. She is still extremely short of breath with minimal activity. Her exam shows only improvement in her apical lung irwin. We will continue with the present course of nebulizers 4 times daily and every 4 hours as needed, oral steroids with a Medrol Dosepak taper schedule, empiric Zithromax, and Mucinex for expectoration. Continue O2, weaning down to r.a. when tolerated, keeping sats > 90%. (2) RSV bronchitis Assessment/Plan: Droplet precautions continue (3) HTN (hypertension) Assessment/Plan: Continue blood pressure meds (4) Hypothyroidism Assessment/Plan: Continue her home Synthroid dose. Will check a TSH level. - Current Meds Current Meds: Current Medications Generic Name Dose Route Start Last Admin Trade Name Freq PRN Reason Stop Dose Admin Acetaminophen 650 mg 08/28/20 12:31 08/28/20 13:47 Acetaminophen 325 Mg Tablet PO 650 mg Q4HR PRN Administration Pain or Fever > 38C (100.4F) Albuterol/Ipratropium 3 ml 08/28/20 15:00 08/29/20 15:51 Ipratropium/Albuterol 3 Ml Neb INH 3 ml RTQID FRAN Administration Albuterol/Ipratropium 3 ml 08/28/20 12:34 08/29/20 05:03 Ipratropium/Albuterol 3 Ml Neb INH 3 ml Q4HR PRN Administration Wheezing Azithromycin 250 mg 08/29/20 09:00 08/29/20 08:16 Azithromycin 250 Mg Tablet PO 09/03/20 08:59 250 mg DAILY FRAN Administration Budesonide 0.5 mg 08/28/20 12:34 08/29/20 07:22 Budesonide 0.5 Mg/2 Ml Neb INH 0.5 mg RTBID FRAN Administration Guaifenesin 600 mg 08/28/20 21:00 08/29/20 08:15 Guaifenesin 600 Mg Tablet PO 600 mg BID FRAN Administration Hydrochlorothiazide 12.5 mg 08/29/20 09:00 08/29/20 08:16 Hydrochlorothiazide 12.5 Mg Capsule PO 12.5 mg DAILY FRAN Administration Ibuprofen 600 mg 08/28/20 18:00 08/29/20 17:29 Ibuprofen 600 Mg Tablet PO 600 mg Q6HR FRAN Administration Levothyroxine Sodium 200 mcg 08/29/20 07:00 08/29/20 06:42 Levothyroxine 100 Mcg Tablet PO 200 mcg QDAC FRAN Administration Losartan Potassium 50 mg 08/29/20 09:00 08/29/20 08:15 Losartan 50 Mg Tablet PO 50 mg DAILY FRAN Administration Methylprednisolone 12 mg 08/29/20 08:00 08/29/20 08:15 Methylprednisolone 4 Mg Tablet PO 12 mg DAILYWM FRAN Administration Oxycodone HCl 5 mg 08/28/20 17:54 08/28/20 21:56 Oxycodone 5 Mg Tablet PO 5 mg Q4HR PRN Administration PAIN Paroxetine HCl 40 mg 08/29/20 09:00 08/29/20 08:16 Paroxetine 10 Mg Tablet PO 40 mg DAILY FRAN Administration Sodium Chloride 10 ml 08/28/20 17:00 08/29/20 17:29 Sodium Chloride Flush 0.9% 10 Ml Syringe IVP 10 ml 0100,0900,1700 ON LICENSE OF [facility] Administration - Lab Result Fish Bone Diagrams: 08/28/20 11:31 08/28/20 11:31 - Additional Planning My Orders: My Active Orders 08/28/20 17:00 Sodium Chloride Flush 0.9% [Normal Saline Flush 0.9%] 10 ml IVP 0100,0900,1700 08/28/20 17:54 oxyCODONE [Roxicodone] 5 mg PO Q4HR PRN 08/28/20 18:00 Ibuprofen [Motrin] 600 mg PO Q6HR 08/28/20 21:00 guaiFENesin [Mucinex] 600 mg PO BID 08/29/20 07:00 Levothyroxine [Synthroid] 200 mcg PO QDAC 08/29/20 08:00 methylPREDNISolone [Medrol] 12 mg PO DAILYWM 08/29/20 09:00 Azithromycin [Zithromax] 250 mg PO DAILY Losartan [Cozaar] 50 mg PO DAILY PARoxetine [Paxil] 40 mg PO DAILY hydroCHLOROthiazide [Hydrodiuril] 12.5 mg PO DAILY Subjective - Subjective Patient Reports: Shortness of Breath (Still very SOB just walking to bathroom and back to bed. Has started to cough and phleg loosening up.) Objective Vital Signs: Vital Signs - 24 hr 08/28/20 08/28/2021 19:45 20:56 00:00 Temperature 36.7 C 36.6 C Heart Rate 82 Heart Rate [ 92 84 Brachial] Respiratory 18 21 18 Rate Blood Pressure 134/85 H [Left Brachial artery] Blood Pressure 127/77 [Right Brachial artery] O2 Saturation 95 95 08/29/20 08/29/20 08/29/20 04:10 05:04 07:23 Temperature 36.5 C Heart Rate 84 78 Heart Rate [ 84 Brachial] Respiratory 17 18 14 Rate Blood Pressure 130/80 [Left Brachial artery] Blood Pressure [Right Brachial artery] O2 Saturation 93 08/29/20 08/29/20 08/29/20 08:00 11:25 12:22 Temperature 36.5 C 36.7 C Heart Rate 93 Heart Rate [ 75 104 H Brachial] Respiratory 22 14 20 Rate Blood Pressure 140/72 H 123/64 [Left Brachial artery] Blood Pressure [Right Brachial artery] O2 Saturation 95 95 08/29/20 08/29/20 15:51 16:53 Temperature 36.6 C Heart Rate 90 Heart Rate [ 99 Brachial] Respiratory 16 21 Rate Blood Pressure 128/73 [Left Brachial artery] Blood Pressure [Right Brachial artery] O2 Saturation 92 Oxygen O2 Source Nasal cannula I&O (Last 24 Hrs): Intake and Output Totals x24h 08/27/20 08/28/20 08/29/20 23:59 23:59 23:59 Intake Total 850 1350 Output Total 500 850 Balance 350 500 General: Alert, Oriented x3, Other (Obese WF) HEENT: Mucous membr. moist/pink Neck: Supple, No JVD Neuro: Alert, Non Focal Cardiovascular: Regular rate, No murmurs Respiratory: Other (Upper lung irwin clear, mid and lower very tight with poor air mvm and scattered wheezes) Abdomen: Soft (Obese with pannus) Extremities: No clubbing, No edema - Results Results: Laboratory Results WBC 10.9 x10^3/uL (4.8-10.8) H 08/28/20 11:31 RBC 4.57 10^6/uL (4.20-5.40) 08/28/20 11:31 Hgb 13.7 g/dL (12.0-16.0) 08/28/20 11:31 Hct 40.8 % (37.0-47.0) 08/28/20 11:31 MCV 89.3 fL (81.0-99.0) 08/28/20 11:31 MCH 30.0 pg (27.0-31.0) 08/28/20 11:31 MCHC 33.6 g/dL (32.0-36.0) 08/28/20 11:31 RDW 13.4 % (12.0-15.0) 08/28/20 11:31 Plt Count 334 10^3/uL (130-450) 08/28/20 11:31 MPV 10.2 fL (7.9-10.8) 08/28/20 11:31 Neut # (Auto) 9.7 10^3/uL (1.5-6.6) H 08/28/20 11:31 Lymph # (Auto) 0.7 10^3/uL (1.5-3.5) L 08/28/20 11:31 [place] # (Auto) 0.4 10^3/uL (0.0-1.0) 08/28/20 11:31 Eos # (Auto) 0.0 10^3/uL (0.0-0.7) 08/28/20 11:31 Baso # (Auto) 0.0 10^3/uL (0.0-0.1) 08/28/20 11:31 Absolute Nucleated RBC 0.00 x10^3/uL 08/28/20 11:31 Nucleated RBC % 0.0 /100WBC 08/28/20 11:31 Sodium 135 mmol/L (135-145) 08/28/20 11:31 Potassium 3.7 mmol/L (3.5-5.0) 08/28/20 11:31 Chloride 98 mmol/L (101-111) L 08/28/20 11:31 Carbon Dioxide 26 mmol/L (21-32) 08/28/20 11:31 Anion Gap 11.0 (6-13) 08/28/20 11:31 BUN 12 mg/dL (6-20) 08/28/20 11:31 Creatinine 0.8 mg/dL (0.4-1.0) 08/28/20 11:31 Estimated GFR (MDRD) 78 (>89) L 08/28/20 11:31 Glucose 140 mg/dL (70-100) H 08/28/20 11:31 Calcium 8.9 mg/dL (8.5-10.3) 08/28/20 11:31 Total Bilirubin 0.4 mg/dL (0.2-1.0) 08/28/20 11:31 AST 19 IU/L (10-42) 08/28/20 11:31 ALT 17 IU/L (10-60) 08/28/20 11:31 Alkaline Phosphatase 93 IU/L (42-121) 08/28/20 11:31 Total Protein 7.7 g/dL (6.7-8.2) 08/28/20 11:31 Albumin 3.9 g/dL (3.2-5.5) 08/28/20 11:31 Globulin 3.8 g/dL (2.1-4.2) 08/28/20 11:31 Albumin/Globulin Ratio 1.0 (1.0-2.2) 08/28/20 11:31 Lipase 20 U/L (22-51) L 08/28/20 11:31 Nasal Adenovirus (PCR) NOT DETECTED 08/28/20 11:15 Nasal B. parapertussis DNA (PCR) NOT DETECTED 08/28/20 11:15 Nasal Coronavir 229E PCR NOT DETECTED 08/28/20 11:15 Nasal Coronavir HKU1 PCR NOT DETECTED 08/28/20 11:15 Nasal Coronavir NL63 PCR NOT DETECTED 08/28/20 11:15 Nasal Coronavir OC43 PCR NOT DETECTED 08/28/20 11:15 Nasal Enterovir/Rhinovir PCR NOT DETECTED 08/28/20 11:15 Nasal Influenza B PCR NOT DETECTED 08/28/20 11:15 Nasal Influenza A PCR NOT DETECTED 08/28/20 11:15 Nasal Parainfluen 1 PCR NOT DETECTED 08/28/20 11:15 Nasal Parainfluen 2 PCR NOT DETECTED 08/28/20 11:15 Nasal Parainfluen 3 PCR NOT DETECTED 08/28/20 11:15 Nasal Parainfluen 4 PCR NOT DETECTED 08/28/20 11:15 Nasal RSV (PCR) DETECTED A 08/28/20 11:15 Nasal B.pertussis DNA PCR NOT DETECTED 08/28/20 11:15 Nasal C.pneumoniae (PCR) NOT DETECTED 08/28/20 11:15 [place]mond Human Metapneumo PCR NOT DETECTED 08/28/20 11:15 Nasal M.pneumoniae (PCR) NOT DETECTED 08/28/20 11:15 Nasal SARS-CoV-2 (PCR) NOT DETECTED 08/28/20 11:15
[2020-08-29] MEDS: oxyCODONE 5 MG TABLET PO PRN (22:03)
[2020-08-30] MEDS: IPRATROPIUM/ALBUTEROL 3 ML NEB INH PRN (00:21)
[2020-08-30] MEDS: SODIUM CHLORIDE FLUSH 0.9% 10 ML SYRINGE IVP SCH ×2 (00:35→08:56)
[2020-08-30] MEDS: IBUPROFEN 600 MG TABLET PO SCH ×3 (00:35→12:38)
[2020-08-30 05:30] LABS: BASOPHILS % (AUTO) 0.1 %; HCT - HEMATOCRIT 39.4 % (37.0-47.0); HGB - HEMOGLOBIN 12.8 g/dL (12.0-16.0); LYMPHOCYTES # (AUTO) 3.5 10^3/uL (1.5-3.5); LYMPHOCYTES % (AUTO) 25.5 %; MEAN CORPUSCULAR HEMOGLOBIN 29.6 pg (27.0-31.0); MEAN CORPUSCULAR HGB CONC 32.5 g/dL (32.0-36.0); MEAN CORPUSCULAR VOLUME 91.2 fL (81.0-99.0); MEAN PLATELET VOLUME 9.9 fL (7.9-10.8); MONOCYTES % (AUTO) 7.3 %; NEUTROPHILS # (AUTO) 9.2 10^3/uL (1.5-6.6); NEUTROPHILS % (AUTO) 66.7 %; PLT - PLATELET COUNT 413 10^3/uL (130-450); RED BLOOD COUNT 4.32 10^6/uL (4.20-5.40); RED CELL DISTRIBUTION WIDTH 13.5 % (12.0-15.0); WHITE BLOOD COUNT 13.8 x10^3/uL (4.8-10.8)
[2020-08-30 05:37] LABS: CALCIUM 8.9 mg/dL (8.5-10.3); CREATININE 0.8 mg/dL (0.4-1.0); POTASSIUM 4.4 mmol/L (3.5-5.0)
[2020-08-30] MEDS: LEVOTHYROXINE 100 MCG TABLET PO SCH (06:17)
[2020-08-30] MEDS: BUDESONIDE 0.5 MG/2 ML NEB INH SCH (07:32)
[2020-08-30] MEDS: IPRATROPIUM/ALBUTEROL 3 ML NEB INH SCH ×3 (07:32→15:31)
[2020-08-30] MEDS: methylPREDNISolone 4 MG TABLET PO SCH (08:55)
[2020-08-30] MEDS: PARoxetine 10 MG TABLET PO SCH (08:55)
[2020-08-30] MEDS: guaiFENesin 600 MG TABLET PO SCH (08:56)
[2020-08-30] MEDS: AZITHROMYCIN 250 MG TABLET PO SCH (08:56)
[2020-08-30] MEDS: LOSARTAN 50 MG TABLET PO SCH (08:56)
[2020-08-30] MEDS: hydroCHLOROthiazide 12.5 MG CAPSULE PO SCH (08:56)
--- NOTE | 2020-08-30 15:25 | Discharge Plan ---
Discharge Plan Problem Reviewed?: Yes Disposition: Home, Self Care Condition: Fair Prescriptions: Ipratropium/Albuterol [Duoneb] 3 ml INH Q4HR PRN #30 neb PRN Reason: Wheezing Albuterol Sulf [Ventolin Hfa Inhaler] 1 - 2 puffs INH Q4HR PRN #1 inh PRN Reason: Shortness Of Air/Wheezing methylPREDNISolone [Medrol Dose Pack] 1 packet PO .PACKAGEINSTRUCTIONS 6 Days #1 each guaiFENesin [Mucinex] 600 mg PO BID #14 tablet Budesonide [Pulmicort] 0.5 mg INH RTBID #10 neb Tiotropium [place] [Spiriva Respimat] 2 puffs IH TID #1 inh Azithromycin [Zithromax] 250 mg PO DAILY #3 tablet Diet: Regular Activity Restrictions: Activity as Tolerated Shower Restrictions: No Driving Restrictions: No Instruction Topics: Nebulizer Use, Nebulizer Steps Ch Health Concerns: You were in the hospital to treat your prolonged asthmatic attack, caused by a respiratory syncytial viral infection. You needed oxygen and nebulized medicatio ns, steroids and antbiotics for bronchitis. You are being discharged with new prescriptions for nebulized inhalers to use on a new nebulizer machine, puffer inhalers, Mucinex, the antibiotic, and a Medrol Dose [place] (steroid pills for taper to off). Please resume your blood pressure and thyroid pills. Plan of Treatment: As above. Care Goals: Improvement in symptoms and stabilization are the goals. Assessment: The patient understands and is agreeable with the plan. Additional Instructions or Follow Up instructions: See your doctor for follow-up later this week. No Smoking: If you smoke, Please STOP! Call for help. Follow-up with: Lindsey Hines DO [Primary Care Provider] -
--- NOTE | 2020-08-30 15:36 | DISCHARGE SUMMARY ---
Discharge Summary Admit Date: 08/28/20 Discharge Date: 08/30/20 Discharging Provider: Dr Lesa Serra Primary Care Provider: Dr Lindsey Hines Condition at Discharge: Fair Discharge Disposition: 01 Home, Self Care - HPI History of Present Illness: This is a 45-year-old WF with a history of asthma, hypertension, obesity (S/P remote gastric sleeve procedure), and hypothyroidism. She caught a URI, she thinks from her 22 y/o son who works at a [employer], and has had low-grade fevers, a ches and a non-productive cough for 2-3 days. Today she developed rapidly worsening short of breath and came to the ED. She was wheezing. Her oxygen saturation was 93% on room air. She was given several doses of nebulizers and steroids and felt better. With ambulation her oxygen saturation dropped to 90% on room air. The patient still feels marked air hunger. Her CXR was read as having probable bronchitis, and no infiltrate was seen. COVID test is neg, and she was vaccinated as well as everyone in her house. Her respiratory PCR is positive for RSV. She is being placed in Observation status for additional management of her acute asthmatic exacerbation and her respiratory syncytial v irus URI. - HOSPITAL COURSE Hospital Course: (1) Acute asthma exacerbation She was started on nebulizers qid and every 4 hours prn, oral steroids with a Medrol Dosepak taper, empiric Zithromax, Mucinex for expectoration and supplemen dianne O2. She was still extremely short of breath with minimal activity and was wheezing and tight on Day 2. She was weaned off O2 the next day and felt better and was discharged to finish the Zithromax, Medrol DosePak and was prescribed new inhalers and nebulizers and she was planning on purchasing a nebulizer. (2) RSV bronchitis Droplet precautions and respiratory isolation was ordered. (3) HTN (hypertension) We continued her home blood pressure meds (4) Hypothyroidism A TSH level was acceptable at 5, and we continued her home Synthroid dose. - ALLERGIES Allergies/Adverse Reactions: Allergies Allergy/AdvReac Type Severity Reaction Status Date / Time No Known Drug Allergies Allergy Verified 08/28/20 07:37 - MEDICATIONS Home Medications: Ambulatory Orders Medication Instructions Recorded Confirmed Levothyroxine Sodium 200 mcg PO DAILY 08/28/20 08/28/20 [Levothyroxine] PARoxetine HCl [Paxil] 40 mg PO DAILY 08/28/20 08/28/20 Telmisartan/Hydrochlorothiazid 1 tab ORAL DAILY 08/28/20 08/28/20 [Telmisartan-Hctz 40-12.5 mg Tb] Albuterol Sulf [Ventolin Hfa 1 - 2 puffs INH Q4HR PRN #1 inh 08/30/20 Inhaler] Azithromycin [Zithromax] 250 mg PO DAILY #3 tablet 08/30/20 Budesonide [Pulmicort] 0.5 mg INH RTBID #10 neb 08/30/20 Ipratropium/Albuterol [Duoneb] 3 ml INH Q4HR PRN #30 neb 08/30/20 Tiotropium [place] [Spiriva 2 puffs IH TID #1 inh 08/30/20 Respimat] guaiFENesin [Mucinex] 600 mg PO BID #14 tablet 08/30/20 methylPREDNISolone [Medrol Dose 1 packet PO .PACKAGEINSTRUCTIONS 6 08/30/20 Pack] Days #1 each - PHYSICAL EXAM AT DISCHARGE General Appearance: positive: No acute distress, Alert (Obese female) Eyes Bilateral: positive: Normal inspection, EOMI ENT: positive: ENT inspection nml, No signs of dehydration Neck: positive: Nml inspection, No JVD Respiratory: positive: No respiratory distress, Other (Clear except poor air movement at bases.) Cardiovascular: positive: Regular rate & rhythm, No murmur Abdomen: positive: Non-tender, Nml bowel sounds, No distention (Obese with pannus) Skin: positive: Warm, Dry Extremities: positive: Nml appearance, No pedal edema Neurologic/Psychiatric: positive: Oriented x3 (Non-focal.) - LABS Result Diagrams: 08/30/20 05:05 08/30/20 05:05 - FOLLOW UP Follow Up: See PCP in 1-2 weeks for hospital follow-up. - TIME SPENT Time Spent in Discharge (Minutes): 30
[2020-08-30 16:39] VITALS: BP 128/85
== END 2020-08-30 17:00 | disposition home or self-care (01) ==
LOC: ED 07:32 → MS3 12:31
PROVIDERS: ADMIT Internal Medicine; ATTEND Internal Medicine
DX: J45.901 Unspecified asthma with (acute) exacerbation (principal); J20.5 Acute bronchitis due to respiratory syncytial virus; B97.4 Respiratory syncytial virus as the cause of diseases classified elsewhere; Z20.822 Contact with and (suspected) exposure to COVID-19; I10 Essential (primary) hypertension; E03.9 Hypothyroidism, unspecified; M54.9 Dorsalgia, unspecified; E66.9 Obesity, unspecified; Z68.36 Body mass index [BMI] 36.0-36.9, adult; Z79.899 Other long term (current) drug therapy
CPT/HCPCS: 0202U; 36415; 71046; 80048; 80053; 83690; 84443; 85025; 94640; 99285; A9270; G0378; J7509; J7626

== ENCOUNTER 2020-09-21 16:07 | Outpatient (CLI) | payer BC ==
--- NOTE | 2020-09-22 10:12 | XRAY Report ---
PROCEDURE: Chest 2 View X-Ray INDICATIONS: BRONCHIOLITIS DUE TO RSV TECHNIQUE: 2 view(s) of the chest. COMPARISON: Prior chest radiograph dated 08/28/2020 FINDINGS: Surgical changes and devices: None. Lungs and pleura: No pleural effusions or pneumothorax. Lungs are clear, aside from diffuse, widesp read bilateral interstitial opacities which are similar to prior examination.. Mediastinum: Mediastinal contours are normal. Heart size is normal. Bones and chest wall: No suspicious bony abnormalities. Soft tissues appear unremarkable. IMPRESSION: Chronic bilateral interstitial opacities similar to previous examination dated 08/28/2020 . Reviewed by: MARTIN Pan on 09/22/2020 10:11 AM PDT Approved by: Remberto Oreilly MD on 09/22/2020 10:11 AM PDT Station ID: [id number]
== END 2020-09-21 16:08 | disposition home or self-care (01) ==
LOC: DI.N 16:07
PROVIDERS: ATTEND Family Medicine
DX: J21.0 Acute bronchiolitis due to respiratory syncytial virus (principal)

== ENCOUNTER 2020-12-08 08:00 | Outpatient (CLI) | payer BC ==
[2020-12-08 12:20] LABS: HCT - HEMATOCRIT 45.5 % (37.0-47.0); HGB - HEMOGLOBIN 14.5 g/dL (12.0-16.0); LYMPHOCYTES # (AUTO) 2.8 10^3/uL (1.5-3.5); LYMPHOCYTES % (AUTO) 34.9 %; MEAN CORPUSCULAR HEMOGLOBIN 29.5 pg (27.0-31.0); MEAN CORPUSCULAR HGB CONC 31.9 g/dL (32.0-36.0); MEAN CORPUSCULAR VOLUME 92.7 fL (81.0-99.0); MEAN PLATELET VOLUME 10.6 fL (7.9-10.8); MONOCYTES # (AUTO) 0.6 10^3/uL (0.0-1.0); MONOCYTES % (AUTO) 7.6 %; NEUTROPHILS # (AUTO) 4.5 10^3/uL (1.5-6.6); NEUTROPHILS % (AUTO) 57.1 %; PLT - PLATELET COUNT 422 10^3/uL (130-450); RED BLOOD COUNT 4.91 10^6/uL (4.20-5.40); RED CELL DISTRIBUTION WIDTH 12.9 % (12.0-15.0); WHITE BLOOD COUNT 7.9 x10^3/uL (4.8-10.8)
[2020-12-08 13:21] LABS: % IRON SATURATION 24 % (20-50); ALBUMIN 3.9 g/dL (3.2-5.5); ALBUMIN/GLOBULIN RATIO 1.1 (1.0-2.2); ALKALINE PHOSPHATASE 86 IU/L (42-121); ALT ALANINE AMINOTRANSFERASE 13 IU/L (10-60); AST ASPARTATE AMINOTRANSFERASE 15 IU/L (10-42); BILIRUBIN,TOTAL 0.9 mg/dL (0.2-1.0); BUN - BLOOD UREA NITROGEN 20 mg/dL (6-20); CALCIUM 9.5 mg/dL (8.5-10.3); CARBON DIOXIDE - CO2 30 mmol/L (21-32); CHLORIDE 103 mmol/L (101-111); CHOL/HDL RATIO 3.7 (<4.4); CHOLESTEROL 239 mg/dL; CREATININE 0.9 mg/dL (0.4-1.0); ESTIMATED AVERAGE GLUCOSE 105 mg/dL (70-100); GFR - MDRD 68 (>89); GLUCOSE 88 mg/dL (70-100); HDL CHOLESTEROL 65 mg/dL; HEMOGLOBIN A1c% 5.3 % (4.27-6.07); IRON 110 ug/dL (28-170); LDL CHOLESTEROL,CALCULATED 159 mg/dL; LDL/HDL RATIO 2.4 (<4.4); POTASSIUM 4.5 mmol/L (3.5-5.0); SODIUM 141 mmol/L (135-145); TOTAL IRON BINDING CAPACITY 459 ug/dL (250-450); TOTAL PROTEIN 7.5 g/dL (6.7-8.2); TRANSFERRIN 328 mg/dL (192-382); TRIGLYCERIDES 73 mg/dL; VLDL CHOLESTEROL 15 mg/dL
[2020-12-08 13:23] LABS: THYROID STIMULATING HORMONE 31.69 uIU/mL (0.34-5.60)
[2020-12-08 13:30] LABS: FERRITIN 10.3 ng/mL (11.0-306.8)
[2020-12-08 15:16] LABS: FREE T4 (FREE THYROXINE) 3.11 ng/dL (0.58-1.64)
== END 2020-12-08 23:59 | disposition home or self-care (01) ==
LOC: LAB.WCP 08:00
PROVIDERS: ATTEND Family Medicine
DX: Z00.00 Encounter for general adult medical examination without abnormal findings (principal)
CPT/HCPCS: 36415; 80053; 80061; 82607; 82728; 83036; 83540; 83721; 84439; 84443; 84466; 85025

== ENCOUNTER 2021-02-01 15:37 | Outpatient (CLI) | payer BC ==
--- NOTE | 2021-02-02 14:05 | Mammography Report ---
BILATERAL DIGITAL SCREENING MAMMOGRAM 3D/2D: 02/01/2021 CLINICAL: Routine screening. Comparison is made to exam dated: 09/24/2018 mammogram - [facility]. The tissue of both breasts is heterogeneously dense. This may lower the sensitivity of mammography. No significant masses, calcifications, or other findings are seen in either breast. There has been no significant interval change. IMPRESSION: NEGATIVE There is no mammographic evidence of malignancy. A 1 year screening mammogram is recommended. This exam was interpreted at Station ID: [id number]. NOTE: For mammograms, a report in lay terms will be sent to the patient. Approximately 15% of breast malignancies will not be visualized mammographically. In the management of a palpable breast mass, a negative mammogram must not discourage biopsy of a clinically suspicious lesion. Electronically Signed By: Santos Raman M.D. ddp/penrad:02/01/2021 16:53:23 ACR BI-RADS Category 1: Negative 3341F PARENCHYMAL PATTERN: (D) - The breast(s) demonstrate(s) heterogeneously dense fibroglandular ajith marcial. BI-RADS CATEGORY: (1) - 1 RECOMMENDATION: (ANNUAL) - Recommend routine annual screening mammography. [id number] 1 year screening LATERALITY: (B)
== END 2021-02-01 15:38 | disposition home or self-care (01) ==
LOC: DI.N 15:37
DX: Z12.31 Encounter for screening mammogram for malignant neoplasm of breast (principal)

== ENCOUNTER 2022-03-06 15:41 | Outpatient (CLI) | payer BC ==
--- NOTE | 2022-03-07 15:37 | Mammography Report ---
BILATERAL DIGITAL SCREENING MAMMOGRAM 3D/2D: 03/06/2022 CLINICAL: Routine screening. Comparison is made to exams dated: 02/01/2021 mammogram and 09/24/2018 mammogram - [facility]. Both breasts are heterogeneously dense, which may obscure small masses (category c / 51-75% glandular tissue). No significant masses, calcifications, or other findings are seen in either breast. There has been no significant interval change. IMPRESSION: NEGATIVE There is no mammographic evidence of malignancy. A 1 year screening mammogram is recommended. Based on the Tyrer Cuzick model (a risk assessment model) the patients lifetime risk is 9.3% and her 10 year risk is 1.6%. According to the ACR, ACS, and NCCN guidelines, an annual breast MRI exam carolina g with mammogram is recommended if the patients lifetime risk is 20% or greater. This exam was interpreted at Station ID: [id number]. NOTE: For mammograms, a report in lay terms will be sent to the patient. Approximately 15% of breast malignancies will not be visualized mammographically. In the management of a palpable breast mass, a negative mammogram must not discourage biopsy of a clinically suspicious lesion. Electronically Signed By: Clemente Lomax M.D. acr/penrad:03/07/2022 07:50:37 ACR BI-RADS Category 1: Negative 3341F PARENCHYMAL PATTERN: (D) - The breast(s) demonstrate(s) heterogeneously dense fibroglandular parelianay ma. BI-RADS CATEGORY: (1) - 1 RECOMMENDATION: (ANNUAL) - Recommend routine annual screening mammography. [id number] 1 year screening LATERALITY: (B)
== END 2022-03-06 15:42 | disposition home or self-care (01) ==
LOC: DI.N 15:41
DX: Z12.31 Encounter for screening mammogram for malignant neoplasm of breast (principal)

== ENCOUNTER 2022-05-06 11:17 | Outpatient (CLI) | payer BC ==
[2022-05-06 19:23] LABS: THYROID STIMULATING HORMONE 10.7 uIU/mL (0.34-5.60)
[2022-05-06 19:24] LABS: FREE T4 (FREE THYROXINE) 2.42 ng/dL (0.58-1.64)
[2022-05-06 19:25] LABS: FREE T3 3.41 pg/mL (2.5-3.9)
== END 2022-05-06 11:18 | disposition home or self-care (01) ==
LOC: LAB.N 11:17
PROVIDERS: ATTEND Physician Assistant
DX: E03.9 Hypothyroidism, unspecified (principal)
CPT/HCPCS: 36415; 84439; 84443; 84481

== ENCOUNTER 2023-02-26 13:57 | Outpatient (CLI) | payer BC ==
--- NOTE | 2023-02-27 15:37 | Mammography Report ---
BILATERAL DIGITAL SCREENING MAMMOGRAM 3D/2D: 02/26/2023 CLINICAL: Routine screening. Comparison is made to exams dated: 03/06/2022 mammogram, 02/01/2021 mammogram, and 09/24/2018 mammogra m - [facility]. There are scattered areas of fibroglandular density in both breasts (category b / 25%-50% glandular t issue). No significant masses, calcifications, or other findings are seen in either breast. There has been no significant interval change. IMPRESSION: NEGATIVE There is no mammographic evidence of malignancy. A 1 year screening mammogram is recommended. Based on the Tyrer Cuzick model (a risk assessment model) the patients lifetime risk is 6.2% and her 10 year risk is 1.1%. According to the ACR, ACS, and NCCN guidelines, an annual breast MRI exam along with mammogram is recommended if the patients lifetime risk is 20% or greater. This exam was interpreted at Station ID: [id number]. NOTE: For mammograms, a report in lay terms will be sent to the patient. Approximately 15% of breast malignancies will not be visualized mammographically. In the management of a palpable breast mass, a negative mammogram must not discourage biopsy of a clinically suspicious lesion. Electronically Signed By: Michelle negrete/ramya:02/26/2023 16:02:23 ACR BI-RADS Category 1: Negative 3341F PARENCHYMAL PATTERN: (A) - The breast(s) demonstrate(s) scattered fibroglandular densities. BI-RADS CATEGORY: (1) - 1 Mammogram [id number] 1 year screening LATERALITY: (B)
== END 2023-02-26 13:58 | disposition home or self-care (01) ==
LOC: DI.N 13:57
DX: Z12.31 Encounter for screening mammogram for malignant neoplasm of breast (principal); R92.323 Mammographic fibroglandular density, bilateral breasts

== ENCOUNTER 2023-08-13 12:19 | Outpatient (CLI) | payer BC | END 2023-08-13 12:20 | disposition home or self-care (01) | LOC: SC 12:19 | PROVIDERS: ATTEND Nurse Practitioner Family | DX: R09.02 Hypoxemia (principal) | CPT/HCPCS: 95806 ==

== ENCOUNTER 2023-09-12 08:53 | Outpatient (CLI) | payer BC ==
--- NOTE | 2023-09-12 09:11 | Sleep Patient Instructions ---
Sleep Center Visit Summary - Patient Visit Information Reason for Visit: Sleep study follow-up - Patient Instructions Additional Instructions: Your sleep study today was negative for significant sleep disordered breathing. However, you did have elevated respiratory episodes when sleeping on your back. You should avoid sleeping on your back to control these respiratory episodes. You were found to have episodes of snoring. There are different ways to control snoring including weight loss, oral devices made by a dentist or surgical options through ENT specialist. You should not use oral devices that do not fit properly because they can affect your bite. You should also check insurance coverage of oral devices for snoring because they may not be cover well. You may obtain a referral to an ENT specialist through your primary provider. You will be completing a sleep study, an in-lab polysomnography (PSG). You will follow-up in the sleep care office after the sleep study is completed to hear the results and talk about therapy, if needed. You will be called by our office staff to schedule this appointment, but you may contact us with any questions. - Clinic Information Contact: [facility] [address] [place] [address] [email or web address] T: [phone]
[2023-09-12 09:14] VITALS: BP 142/86; O2SAT 95
--- NOTE | 2023-09-12 09:14 | SLEEP CARE CONSULTATION ---
Information from patient questionnaire entered by Vandana Williamson. I have reviewed and concur with the information entered by Vandana Williamson. This document represents the service I personally performed and the decisions made by , Jaimee Collins ARNP. History of Present Illness Service Date and Time: 09/12/2023 0853 Initial [place]lin Sleepiness Scale score: 2 (in 2023) Current Merlin Sleepiness Scale score: 1 (09/12/23) Additional HPI information: MAYRA VILLAPLANDO returns for follow up and results of the recently performed home sleep study on 08/13/2023. The patient was informed of the following findings: No significant sleep disord ered breathing with an average AHI of 4.1 and checo oxygen saturation of 83%. She had an elevated supine AHI of 5.8. I explained the pathophysiology behind obstructive sleep apnea. Patient does not have sleep apnea and was advised how weight gain could increase the risk of developing sleep apnea in the future. I strongly encouraged the patient to lose weight. Patient does not have significant sleep disordered breathing but has elevated AHI in supine position so advised positional therapy. Methods to achieve positional management therapy were discussed; such as, positioning with pillows, wearing a T-shirt with tennis balls sewn into the back or commercially available products. Patient has mild snoring. Snoring can be reduced by weight loss. Weight loss is best achieved with diet consult. Patient instructed to contact PCP for referral. Snoring can also be treated with an oral appliance from a dentist. Advised to check insurance coverage. In addition, an ENT evaluation can be do to see if other treatment is indicated. Patient counseled not drink alcohol less than 4 hours before bedtime as it can increase snoring and apnea. Patient was cautioned about risks of drowsy driving until sleepiness symptoms resolve. Patient denies drowsy driving. Sleep Study - Results Type of Sleep Study: Home sleep study (COMPLETED 08/13/23) Prior sleep studies: Yes Year and Where: [facility] 2007 Polysomnography/Home Sleep Study results: Physician Impression: The quality of the study is good. The length of the study is adequate (> 240 minutes). Please also see the tabulated and graphic data. 1. No significant sleep disordered breathing, with an AHI of 4.1/hr and checo SaO2 of 83%. During the study, the patient had 6 apneas (6 obstructive, 0 central, 0 mixed) and 30 hypopneas. The longest episode lasted 86.5 seconds. The few respiratory events occurred almost exclusively during supine sleep (supine AHI was 5.8 and non-supine, 1.47). 2. Hypoxemia (ICD-10 R09.02), mild, with the lowest oxygen saturation of 83 % and 171.1 minutes with SaO2 under 90%. Baseline oxygen saturation was low-normal (Average oxygen saturation was 90%). Time spent with oxygen saturation at or below 88% is 110 minutes. Allergies and Home Medications Known drug allergies: No Drug allergies reviewed: Yes Home medication list reviewed: Yes (no changes) Allergy and home medication list: Allergies No Known Drug Allergies Allergy (Verified 09/12/23 08:53) Review of Systems Review of systems same as previous: Yes (no changes) Physical Exam Vital signs obtained and entered by: VANDANA Trinidad MA Blood Pressure: 142/86 (LEFT ARM) Cuff size: long Heart Rate: 89 O2 Saturation: 95 Height: 5 ft 4 in Weight: 215 lb 3.2 oz Body Mass Index: 36.9 BMI Classification: Obese Impression and Plan 1. Hypoxemia, mild, with a checo oxygen saturation of 83% and 171.1 minutes spent under 90%. The baseline oxygen saturation was low normal with an average oxygen saturation of 90%. Further evaluation of hypoxemia is recommended and she should follow up with her primary provider. She has a history of hypertension and anxiety. I still suspected sleep disordered breathing , as recommend proceeding to polysomnography to confirm the diagnosis and to assess severity. I obtained agreement to proceed. The pathophysiology of obstructive sleep apnea-hypopnea syndrome was discussed with the patient and health risks of cardiovascular and cerebrovascular disease if not treated. Risks of drowsy driving discussed in detail and patient advised to avoid long distance driving and to caul puller at the first sign of drowsiness. Patient agreed to plan. 2. Snoring but no significant sleep disordered breathing. However, patient had elevated supine AHI of 5.8 when sleeping on her back. She should avoid sleeping supine. Patient advised that often weight loss will reduce snoring as well as apnea risk. An oral appliance can also be used for snoring. This would require a dental consultation. Patient cautioned not to use other online appliances as can cause bite issues. A list of accredited dentists [facility] and one local dentist who makes oral appliances given. Patient is advised to check if insurance will cover. An ENT consult can also be helpful to determine if any other treatment is an option. 3. Obesity, unspecified. Currently patients BMI is 36.9. Obesity increases the risk of apnea, CPAP pressure requirements and overall health risks especially cardiovascular and diabetes. Thus patient is advised to continue to try to lose weight. * Follow up with PCP for hypoxemia * Continue to try to lose weight * Schedule polysomnography to verify diagnosis and severity * Review instructions provided by trained office staff on how to prepare for the sleep study. * Return for follow-up after sleep study completed. Counseling Topics: Sleeping position, Weight loss health impact Plan: PSG to re-evaluate Visit Type: In Office Time Spent with Patient (minutes): 20 Provider Statement: I spent 100% of the Face to Face Visit with the patient with greater than 50% spent counseling the patient and coordination of care.
== END 2023-09-12 08:54 | disposition home or self-care (01) ==
LOC: SC 08:53
PROVIDERS: ATTEND Nurse Practitioner Family
DX: R09.02 Hypoxemia (principal); R06.83 Snoring; E66.9 Obesity, unspecified; Z68.36 Body mass index [BMI] 36.0-36.9, adult
CPT/HCPCS: 99212; 99213

== ENCOUNTER 2023-10-22 19:38 | Outpatient (CLI) | payer BC | END 2023-10-22 19:39 | disposition home or self-care (01) | LOC: SC 19:38 | PROVIDERS: ATTEND Nurse Practitioner Family | DX: G47.33 Obstructive sleep apnea (adult) (pediatric) (principal); G47.61 Periodic limb movement disorder; R09.02 Hypoxemia; I10 Essential (primary) hypertension | CPT/HCPCS: 95810 ==

== ENCOUNTER 2023-11-06 11:28 | Outpatient (CLI) | payer BC ==
--- NOTE | 2023-11-06 11:19 | SLEEP CARE CONSULTATION ---
Information from patient questionnaire entered by Clotilde Abel. I have reviewed and concur with the information entered by Clotilde Abel. This document represents the service I personally performed and the decisions made by , Jaimee Collins ARNP. History of Present Illness Service Date and Time: 11/06/2023 1100 Initial [place] Sleepiness Scale score: 2 (in 2023) Current [place] Sleepiness Scale score: 2 (11/06/23) Additional HPI information: MAYRA VILLALPANDO returns via video appointment for follow up and results of the recently performed polysomnography done on 11/01/2023. The patient was informed of the following findings: No significant sleep disordered breathing with an average AHI of 3.5 and checo oxygen saturation of 84%. She had severe periodic leg movements of sleep contributing to sleep fragmentation. I explained the pathophysiology behind obstructive sleep apnea. Patient does not have sleep apnea and was advised how weight gain could increase the risk of developing sleep apnea in the future. I strongly encouraged the patient to lose weight. Patient does not have significant sleep disordered breathing but has elevated AHI in non-supine position so advised positional therapy. Methods to achieve positional management therapy were discussed; such as, positioning with pillows, wearing a T-shirt with tennis balls sewn into the back or commercially available products. Patient has light to moderate snoring. Snoring can be reduced by weight loss. Weight loss is best achieved with diet consult. Patient instructed to contact PCP for referral. Snoring can also be treated with an oral appliance from a dentist. Advised to check insurance coverage. In addition, an ENT evaluation can be do to see if other treatment is indicated. Patient counseled not drink alcohol less than 4 hours before bedtime as it can increase snoring and apnea. Patient was cautioned about risks of drowsy driving until sleepiness symptoms resolve. Patient denies drowsy driving. Sleep Study - Results Type of Sleep Study: Home sleep study (COMPLETED 08/13/23) Prior sleep studies: Yes Year and Where: [facility] 2007 Polysomnography/Home Sleep Study results: IMPRESSION: The quality of the study is good. The patient had normal sleep efficiency. The sleep architecture was abnormal for sleep fragmentation and reduced amount of time spent in REM and slow wave sleep (N3). Respiratory monitoring showed no significant sleep disordered breathing (AHI = 3.5). There was mild hypoxia (checo oxygen saturation of 85% and 4 minutes spent with oxygen saturation at or below 88%). Few respiratory events occurred mainly during REM sleep (supine AHI = 2.5; non-supine = 5.49). Snore was light to moderate in intensity. There was severe periodic leg movement of sleep, contributing to the sleep fragmentation. Cardiac rhythm was normal sinus rhythm without significant arrhythmia. No abnormal b ehavior (parasomnia) observed during the night. Allergies and Home Medications Known drug allergies: No Drug allergies reviewed: Yes Home medication list reviewed: Yes (no changes) Allergy and home medication list: Allergies No Known Drug Allergies Allergy Review of Systems Review of systems same as previous: Yes (no changes) Physical Exam Vital signs obtained and entered by: Jaimee Jernigan NP Height: 5 ft 4 in Weight: 211 lb Body Mass Index: 36.2 BMI Classification: Obese Impression and Plan 1. Periodic limb movement, severe, that did contribute to fragmentation of patients sleep. Periodic limb movement of sleep (PLMS) is characterized by episodes of repetitive limb movements that occur during sleep and usually involve the lower limbs. The etiology is unknown. Sleep hygiene methods can also improve sleep as well as lifestyle changes such as regular exercise. Patient was advised to follow up with primary provider for further evaluation of her PLMs. She voiced understanding. 2. Snoring but no significant sleep disordered breathing. However, patient has slightly elevated nonsupine AHI at 5.4 and should avoid sleeping nonsupine. Patient advised that often weight loss will reduce snoring as well as apnea risk. An oral appliance can also be used for snoring. This would require a dental consultation. Patient cautioned not to use other online appliances as can cause bite issues. Patient is advised to check if insurance will cover. An ENT consult can also be helpful to determine if any other treatment is an option. 3. Hypoxemia, mild, with a checo oxygen saturation of 84% and 4.2 minutes spent under 90%. The baseline oxygen saturation was normal with an average oxygen saturation of 92%. Further evaluation should be considered but oxygen therapy is not yet indicated. * Follow up with PCP for severe PLMs and mild hypoxemia * Attempt to lose weight * Avoid alcohol consumption near bedtime * Return as needed for follow up. Counseling Topics: Sleeping position, Weight loss health impact Follow up with Sleep Care in: as needed Follow up with: PCP Follow up recommended for: PLMS Visit Type: [facility]health [facility] Patient Location: work-car Location of Provider: Office Patient agrees and consents to this telehealth visit type: Yes Patient agrees to have their insurance billed: Yes Time Spent with Patient (minutes): 15 Provider Statement: I spent 100% of the Telehealth Video Call with the patient with greater than 50% spent counseling the patient and coordination of care.
== END 2023-11-06 11:29 | disposition home or self-care (01) ==
LOC: SC 11:28
PROVIDERS: ATTEND Nurse Practitioner Family
DX: G47.61 Periodic limb movement disorder (principal); R06.83 Snoring; E66.9 Obesity, unspecified; Z68.36 Body mass index [BMI] 36.0-36.9, adult; R09.02 Hypoxemia